=== PATIENT | female | born 1995 | race Caucasian/White ===

== ENCOUNTER 2016-05-13 03:52 | Emergency (ER) | payer OTHER ==
[~2016-05-13] VITALS: Ht 152.4 cm; Wt 78.9 kg
[2016-05-13] MEDS ORDERED: NS 1,000 ML IV ONE (04:30)
[2016-05-13 04:52] LABS: BASO % 0.2 % (0.0-1.0); EOS # 0.1 K/mm3 (0.0-0.50); EOS % 1.1 % (0.0-3.0); LARGE UNSTAINED CELL # 0.1 K/mm3 (0.0-0.4); LARGE UNSTAINED CELL % 1.1 % (0.0-4.0); LYMPH # 1.6 K/mm3 (1.5-6.5); LYMPH % 15.4 % (24.0-44.0); MEAN CORPUSCULAR HEMOGLOBIN 24.3 pg (27.0-33.0); MEAN CORPUSCULAR HGB CONC 31.6 g/dl (32.0-36.5); MEAN CORPUSCULAR VOLUME 77.1 fl (80.0-96.0); MONO # 0.4 K/mm3 (0.0-0.8); MONO % 3.8 % (0.0-5.0); NEUTROPHILS # 8.3 K/mm3 (1.8-7.7); NEUTROPHILS % 78.4 % (36.0-66.0); PLATELET COUNT, AUTOMATED 389 k/mm3 (150-450); WHITE BLOOD COUNT 10.6 K/mm3 (4.0-10.0)
[2016-05-13 05:16] LABS: ALKALINE PHOSPHATASE 90 U/L (45-117); ALT/SGPT 10 U/L (12-78); ANION GAP 11 MEQ/L (8-16); AST/SGOT 12 U/L (15-37); BILIRUBIN,DIRECT < 0.1 MG/DL (0.0-0.2); BILIRUBIN,TOTAL 0.2 MG/DL (0.2-1.0); BLOOD UREA NITROGEN 7 MG/DL (7-18); CALCIUM LEVEL 8.7 MG/DL (8.5-10.1); CARBON DIOXIDE LEVEL 23 MEQ/L (21-32); CHLORIDE LEVEL 105 MEQ/L (98-107); GLUCOSE, FASTING 95 MG/DL (70-105); SODIUM LEVEL 139 MEQ/L (136-145); TOTAL PROTEIN 7.3 GM/DL (6.4-8.2)
[2016-05-13] MEDS ORDERED: METOCLOPRAMIDE INJ 10MG/2ML VIAL (J2765) IV ONE (05:30)
[2016-05-13] MEDS ORDERED: REGL10TA6 PO (06:38)
[2016-05-13 06:51] VITALS: BP 108/69
== END 2016-05-13 06:57 | disposition home or self-care (01) ==
LOC: M ED 05:27
DX: O21.9 Vomiting of pregnancy, unspecified (principal); Z3A.17 17 weeks gestation of pregnancy; Z79.899 Other long term (current) drug therapy; Z88.1 Allergy status to other antibiotic agents
CPT/HCPCS: 80048; 80076; 83690; 85025; 93041; 96361; 96374; 99284; J2765

== ENCOUNTER 2016-10-25 03:27 | Inpatient (IN) | payer OTHER ==
[~2016-10-25] VITALS: Ht 152.4 cm; Wt 88.0 kg
[2016-10-25] VITALS (14 sets, daily range): BP systolic 107–134; BP diastolic 55–85
[~2016-10-25 03:27] MED LIST: REGL10TA6 PO
[2016-10-25 04:21] LABS: MEAN CORPUSCULAR HEMOGLOBIN 22.1 pg (27.0-33.0); MEAN CORPUSCULAR HGB CONC 31.4 g/dl (32.0-36.5); MEAN CORPUSCULAR VOLUME 70.2 fl (80.0-96.0); RED CELL DISTRIBUTION WIDTH 16.8 % (11.5-14.5); WHITE BLOOD COUNT 12.6 K/mm3 (4.0-10.0)
[2016-10-25] MEDS ORDERED: LACTATED RINGER'S 1000 ML IV STA (05:15)
[2016-10-25] MEDS ORDERED: FENTANYL 2MCG/ML ROPIVACAINE 0.2% IN 0.9% NACL 200ML IVBAG As Ordered ONE (05:24)
[2016-10-25] MEDS ORDERED: REFRIGERATOR IV KEYS XX PRN (06:00)
[2016-10-25] MEDS ORDERED: EPIDURAL/PCA KEYS XX PRN (06:00)
[2016-10-25] MEDS ORDERED: ONDANSETRON 4MG/2ML VIAL (J2405) IV PRN (06:00)
[2016-10-25] MEDS ORDERED: NALOXONE INJ 0.4 MG/1 ML VIAL (J2310) IV PRN (06:00)
[2016-10-25] MEDS ORDERED: FENTANYL/ROPIVACAINE/NACL BAG 200 ML EPIDURAL SCH (06:00)
[2016-10-25] MEDS ORDERED: EPIDURAL COMMENT XX SCH (06:00)
[2016-10-25] MEDS ORDERED: diphenhydrAMINE INJ 50MG/ML VIAL (J1200) IV PRN (06:00)
[2016-10-25] MEDS ORDERED: ePHEDrine SULFATE 25 MG/5 ML(5MG/ML) SYRINGE IV PRN (06:00)
[2016-10-25] MEDS: DOCUSATE SODIUM 100 MG CAP PO SCH ×2 (09:00→21:34)
[2016-10-25] MEDS: PRENATAL VITAMINS CHEWABLE TABLET PO SCH (09:00)
[2016-10-25] MEDS ORDERED: OXYTOCIN 30 UNITS IN 0.9% NaCl 500ML IV BAG (J2590) As Ordered ONE (09:11)
--- NOTE | 2016-10-25 09:12 | IPNPDOC ---
Text Note Date of Service The patient was seen on 10/25/16. NOTE SBAR from Dr Villeda ~3215. Chart reviewed. Has an epidural. Lots of pressure. NST Cat 1 Cx C/C/+2,AROM clr fluid, OA Start pushing when returns Sessions MD ROWLEY,Jim, I+O VS, Jim, I+O Laboratory Tests 10/25/16 04:12 Red Blood Count 4.19, Mean Corpuscular Volume 70.2 L, Mean Corpuscular Hemoglobin 22.1 L, Mean Corpuscular Hemoglobin Concent 31.4 L, Red Cell Distribution Width 16.8 H Vital Signs Date Time Temp Pulse Resp B/P (MAP) Pulse Ox O2 Delivery O2 Flow Rate FiO2 10/25/16 08:10 68 111/59 (76) 10/25/16 07:24 98.9 16 SESSIONS,VIKRAM Hayes MD Oct 25, 2016 09:12
[2016-10-25] MEDS ORDERED: MEASLES,MUMPS,RUBELLA VACCINE INJ (MMR-II) (90707) SC SCH (09:45)
[2016-10-25] MEDS ORDERED: OXYTOCIN DRIP 30 UNITS in APPROPRIATE DILUENT 1 EA IV SCH (09:45)
[2016-10-25] MEDS ORDERED: DIBUCAINE 1% OINTMENT 30GM TOP PRN (09:45)
[2016-10-25] MEDS ORDERED: ACETAMINOPHEN TAB 650MG DOSE (2X325MG) PO PRN (09:45)
[2016-10-25] MEDS ORDERED: RHOGAM 300 MCG (1500 IU) INJ (J2790) IM SCH (09:45)
[2016-10-25] MEDS ORDERED: METOCLOPRAMIDE INJ 10MG/2ML VIAL (J2765) IV PRN (09:45)
--- NOTE | 2016-10-25 10:02 | DNPDOC ---
[facility] Delivery Note Delivery Note DATE OF DELIVERY: [id number] PREDELIVERY DIAGNOSIS: 40 0/7 weeks' gestation and labor. POST DELIVERY DIAGNOSIS: Delivered. PROCEDURE: Spontaneous vaginal delivery [employer]: ANESTHESIA: Epidural ESTIMATED BLOOD LOSS: 200 mL. FINDINGS: 8 pound 6 ounce male , Score 8/9, nuchal cord times 1, loose DELIVERY SUMMARY: Significant urge to push, could not wait for . Delivered w/o delay of the vtx or the ant/post shoulders, SADA. Nuchal reduced easily. To abd, vigorous. Cord C/C by mother. Cord blood for typing. Placenta intact with minimal traction, fundal mssage. Pit going wide open, fundus firm. 2nd degr per lac rpr'd with 3-0 vicryl. Good cosmesis/ hemostasis. Renee ARAGON,VIKRAM Hayes MD Oct 25, 2016 10:02
[2016-10-25] MEDS ORDERED: LIDOCAINE 1% MDV INJ 50 ML VIAL SC ONE (12:45)
[2016-10-26 06:19] VITALS: BP 122/70
--- NOTE | 2016-10-26 08:16 | IPNPDOC ---
Text Note Date of Service The patient was seen on 10/26/16. NOTE PPD#1 s/p S: Pt doing well. Pain well controlled, lochia decreasing/minimal, voiding spontaneously, tolerating a regular diet, ambulating without difficulty. No f/c /n/v/ASH. Breast feeding. O: normotensive, nml HR, afebrile H: RRR no m/g/r L: CTA b/l no w/c/r/r Abd: soft, appropriately tender, and FF at U-1/fundus nontender Ext: no c/c/e A/P: S/p , PPD#1. Hemodynamically stable, afebrile, good pain control. -Routine care -will continue to monitor - likely discharge home tomorrow. Sessions VS,Jim, I+O VSJim I+O Vital Signs Date Time Temp Pulse Resp B/P (MAP) Pulse Ox O2 Delivery O2 Flow Rate FiO2 10/26/16 06:19 98.2 70 18 122/70 (87) 97 Room Air I&O- Last 24 Hours up to 6 AM 10/26/16 06:00 Intake Total 1500 ml Output Total 300 ml Balance 1200 ml SESSIONS,VIKRAM Hayes MD Oct 26, 2016 08:16
[2016-10-26] MEDS: DOCUSATE SODIUM 100 MG CAP PO SCH ×2 (08:45→22:04)
[2016-10-26] MEDS: PRENATAL VITAMINS CHEWABLE TABLET PO SCH (08:45)
[2016-10-26] MEDS: IBUPROFEN 800 MG TAB PO PRN ×2 (09:02→22:04)
[2016-10-26 18:08] VITALS: BP 141/81
--- NOTE | 2016-10-27 06:24 | DS.PDOC ---
Discharge Summary General Date of Admission Oct 25, 2016 at 03:59 Date of Discharge [id number] Discharge Summary PROCEDURES PERFORMED DURING STAY: spontaneous vaginal delivery ADMITTING DIAGNOSIS: 1. Active Labor DISCHARGE DIAGNOSES: 1. Healthy male HOSPITAL COURSE: Admitted for active labor and delivery. Uncomplicated, see delivery note. DISCHARGE MEDICATIONS: Motrin, Tylenol, Colace, Lanolin, Dibucaine Physical exam: see note from this morning LABORATORY DATA: Please see below. ACTIVITY: as tolerated. Nothing in vagina for 6 weeks. DIET: regular DISPOSITION:stable TIME SPENT ON DISCHARGE: Greater than 15 minutes. Sessions Vital Signs/I&Os Vital Signs Date Time Temp Pulse Resp B/P (MAP) Pulse Ox O2 Delivery O2 Flow Rate FiO2 10/26/16 18:08 98.2 87 20 141/81 (101) 10/26/16 06:19 97 Room Air I&O- Last 24 Hours up to 6 AM 10/27/16 06:00 Intake Total 720 ml Balance 720 ml Discharge Medications Scheduled PRN Metoclopramide HCl (Reglan) 10 Mg Tab, 10 MG PO Q6H PRN for NAUSEA Allergies Coded Allergies: Cefuroxime (Verified Allergy, Unknown, 05/13/16) ANAPHACTYSIS Sulfamethoxazole w/Trimethoprim (Verified Allergy, Unknown, 05/13/16) ANAPHYLACTIC Vancomycin (Verified Allergy, Unknown, 05/13/16) ANAPHYLACYSIS SESSIONS,VIKRAM Hayes MD Oct 27, 2016 06:24
[2016-10-27 06:25] VITALS: BP 132/86
[2016-10-27] MEDS: IBUPROFEN 800 MG TAB PO PRN (08:28)
[2016-10-27] MEDS: PRENATAL VITAMINS CHEWABLE TABLET PO SCH (08:28)
[2016-10-27] MEDS: DOCUSATE SODIUM 100 MG CAP PO SCH (08:28)
[2016-10-27] MEDS ORDERED: COLA100C5 PO (08:57)
[2016-10-27] MEDS ORDERED: PRENTAB9 PO (08:57)
[2016-10-27] MEDS ORDERED: ACET50TA PO (08:57)
[2016-10-27] MEDS ORDERED: IBUP-1114 PO (08:57)
== END 2016-10-27 12:35 | disposition home or self-care (01) | DRG 775 ==
LOC: M LDO 03:27 → M LDI 03:59 → M OBS 11:41
PROVIDERS: ADMIT Obstetrics & Gynecology; ATTEND Obstetrics & Gynecology
PROC: 10E0XZZ Delivery of Products of Conception, External Approach (ICD-10-PCS; principal; 2016-10-25)
PROC: 0KQM0ZZ Repair Perineum Muscle, Open Approach (ICD-10-PCS; 2016-10-25)
DX: O48.0 Post-term pregnancy (principal); Z37.0 Single live birth; Z3A.40 40 weeks gestation of pregnancy; O69.82X0 Labor and delivery complicated by other cord entanglement, without compression, not applicable or unspecified; O70.1 Second degree perineal laceration during delivery; Z88.8 Allergy status to other drugs, medicaments and biological substances